=== PATIENT | female | born 1955 | race Caucasian/White ===

== ENCOUNTER 2017-08-28 16:17 | Emergency (ER) | payer OTHER ==
--- NOTE | 2017-08-28 16:20 | ER Report ---
History and Physical Time Seen By MD: 16:19 HPI/ROS CHIEF COMPLAINT: chills HISTORY OF PRESENT ILLNESS: Last night woke up with reflux at 1am. took gaviscon and raised her head in bed and felt better. States that she has had reflux before. PT woke up at her normal time and had a runny nose. 3 hours ago stasrtd with cough, chills and tactile fever. no palumbo. no change in bm. Pt states she feels shaky and her heart is fast. Has hx of svt but states this is different. Has pain in her chest but only with cough. Pt states she felt she had the flu 3 weeks ago but was never tested. pt did get flu shot this year. REVIEW OF SYSTEMS: Constitutional: + fever, + chills. Eyes: No discharge. ENT: No sore throat. Cardiovascular: + chest pain with cough, + palpitations. Respiratory: + cough, no shortness of breath. Gastrointestinal: No abdominal pain, no vomiting. Genitourinary: No hematuria. Musculoskeletal: No back pain. Skin: No rashes. Neurological: No headache. Allergies: Coded Allergies: peanut (Verified Allergy, Severe, ANAPHYLAXIS, 08/28/17) Quinolones (Verified Allergy, Intermediate, 08/28/17) Sulfa (Sulfonamide Antibiotics) (Verified Allergy, Intermediate, 08/28/17) Home Meds Active Scripts Oseltamivir Phosphate (TAMIFLU) 75 Mg Cap, 75 MG PO BID, #10 CAP Prov:JATINDER DIEGO V DO 08/28/17 Reported Medications Epinephrine (EPIPEN 2-AUBREE) 0.3 Mg/0.3 Ml Pen.injctr, 0.3 MG IM 08/28/17 Valacyclovir Hcl (VALTREX) 500 Mg Tablet, 500 MG PO 08/28/17 Escitalopram Oxalate (LEXAPRO) 20 Mg Tablet, 5 MG PO QDAY, TAB 08/28/17 Past Medical/Surgical History pmhx: svt, gerd, anxiety Pshx: non contribuitory Reviewed Nurses Notes: Yes Old Medical Records Reviewed: No (none) Smoking Status: Never Smoker Exposure to Second Hand Smoke?: Yes (as child) Hx Alcohol Use: Yes (occasional) Constitutional Vital Sign - Last 24 Hours 3/11/18 3/11/18 3/11/18 3/11/18 16:22 16:30 16:30 17:00 Temp 99.9 Pulse 155 135 131 121 Resp 17 18 16 18 B/P (MAP) 141/97 (112) 131/79 131/79 (96) 127/82 (97) Pulse Ox 95 95 97 96 O2 Delivery Room Air 08/28/17 08/28/17 08/28/17 17:30 17:47 18:00 Pulse 116 121 116 Resp 16 22 23 B/P (MAP) 122/72 (89) 126/76 (93) Pulse Ox 96 97 94 Physical Exam General Appearance: The patient is alert, has no immediate need for airway protection and no signs of toxicity. Eyes: Pupils equal and round no pallor or injection, EOMI ENT: no pharyngeal erythema or exudates, Mucous membranes are moist, TM are nl b/l Respiratory: There are no retractions, lungs are clear to auscultation. Cardiovascular: tachy. pulses are equal and symmetrical Gastrointestinal: Abdomen is soft and non tender, no masses, bowel sounds normal, no guarding, no rigidity or rebound Neurological: Cranial nerves II-XII grossly intact, no sensory or motor loss Skin: Warm and dry, no rashes. Musculoskeletal: Neck is supple non tender, no vertebral tenderness Extremities are nontender, non swollen and have full range of motion. DIFFERENTIAL DIAGNOSIS: After history and physical exam differential diagnosis was considered for pneumonia, influenza, bronchitis, acs Medical Decision Making Data Points Result Diagram: 08/28/17 1645 08/28/17 1645 Laboratory Hematology Test 08/28/17 16:45 Red Blood Count 4.95 M/uL (4.17-5.56) Mean Corpuscular Volume 86.7 fL (80.0-96.0) Mean Corpuscular Hemoglobin 29.8 pg (26.0-33.0) Mean Corpuscular Hemoglobin Concent 34.4 g/dL (32.0-36.0) Red Cell Distribution Width 13.6 % (11.5-14.5) Mean Platelet Volume 7.3 fL (7.2-11.1) Neutrophils (%) (Auto) 87.5 % (39.4-72.5) Lymphocytes (%) (Auto) 4.9 % (17.6-49.6) Monocytes (%) (Auto) 6.8 % (4.1-12.4) Eosinophils (%) (Auto) 0.5 % (0.4-6.7) Basophils (%) (Auto) 0.3 % (0.3-1.4) Nucleated RBC Relative Count (auto) 0.0 /100WBC Neutrophils # (Auto) 8.8 K/uL (2.0-7.4) Lymphocytes # (Auto) 0.5 K/uL (1.3-3.6) Monocytes # (Auto) 0.7 K/uL (0.3-1.0) Eosinophils # (Auto) 0.1 K/uL (0.0-0.5) Basophils # (Auto) 0.0 K/uL (0.0-0.1) Nucleated RBC Absolute Count (auto) 0.00 K/uL D-Dimer Quantitative (PE/DVT) 0.45 ug/ml (0-0.50) Urine Color Straw Urine Clarity Clear Urine pH 7.0 pH (4.8-9.5) Urine Specific Dora 1.011 Urine Protein Negative mg/dL (NEGATIVE) Urine Glucose (UA) Negative mg/dL (NEGATIVE) Urine Ketones Trace mg/dL (NEGATIVE) Urine Blood Negative (NEGATIVE) Urine Nitrite Negative (NEGATIVE) Urine Bilirubin Negative (NEGATIVE) Urine Urobilinogen Negative mg/dL (0.2-1.9) Urine Leukocyte Esterase Negative (NEGATIVE) Urine RBC 1 /HPF (0-2/HPF) Urine WBC <1 /HPF (0-5/HPF) Urine Squamous Epithelial Cells Few /LPF (</=FEW) Urine Bacteria Negative /HPF (NONE-FEW) Urine Mucus None /HPF (NONE-FEW) Sodium Level 137 mmol/L (137-145) Potassium Level 3.7 mmol/L (3.5-5.0) Chloride Level 101 mmol/L (98-107) Carbon Dioxide Level 23 mmol/L (22-31) Blood Urea Nitrogen 14 mg/dl (7-18) Creatinine 0.80 mg/dl (0.52-1.04) Glomerular Filtration Rate Calc > 60.0 Random Glucose 101 mg/dl (75-110) Calcium Level 9.2 mg/dl (8.4-10.2) Total Bilirubin 0.2 mg/dl (0.2-1.3) Aspartate Amino Transf (AST/SGOT) 30 U/L (0-35) Alanine Aminotransferase (ALT/SGPT) 46 U/L (0-56) Alkaline Phosphatase 70 U/L (0-126) Troponin I < 0.012 ng/ml Total Protein 7.6 gm/dl (6.3-8.2) Albumin 4.2 g/dl (3.5-5.0) Influenza Virus Type A (PCR) Positive (NEGATIVE) Influenza Virus Type B (PCR) Negative (NEGATIVE) Chemistry Test 08/28/17 16:45 White Blood Count 10.0 k/uL (4.5-11.0) Red Blood Count 4.95 M/uL (4.17-5.56) Hemoglobin 14.7 g/dL (12.0-16.0) Hematocrit 42.9 % (34.0-47.0) Mean Corpuscular Volume 86.7 fL (80.0-96.0) Mean Corpuscular Hemoglobin 29.8 pg (26.0-33.0) Mean Corpuscular Hemoglobin Concent 34.4 g/dL (32.0-36.0) Red Cell Distribution Width 13.6 % (11.5-14.5) Platelet Count 315 K/uL (150-450) Mean Platelet Volume 7.3 fL (7.2-11.1) Neutrophils (%) (Auto) 87.5 % (39.4-72.5) Lymphocytes (%) (Auto) 4.9 % (17.6-49.6) Monocytes (%) (Auto) 6.8 % (4.1-12.4) Eosinophils (%) (Auto) 0.5 % (0.4-6.7) Basophils (%) (Auto) 0.3 % (0.3-1.4) Nucleated RBC Relative Count (auto) 0.0 /100WBC Neutrophils # (Auto) 8.8 K/uL (2.0-7.4) Lymphocytes # (Auto) 0.5 K/uL (1.3-3.6) Monocytes # (Auto) 0.7 K/uL (0.3-1.0) Eosinophils # (Auto) 0.1 K/uL (0.0-0.5) Basophils # (Auto) 0.0 K/uL (0.0-0.1) Nucleated RBC Absolute Count (auto) 0.00 K/uL D-Dimer Quantitative (PE/DVT) 0.45 ug/ml (0-0.50) Urine Color Straw Urine Clarity Clear Urine pH 7.0 pH (4.8-9.5) Urine Specific Dora 1.011 Urine Protein Negative mg/dL (NEGATIVE) Urine Glucose (UA) Negative mg/dL (NEGATIVE) Urine Ketones Trace mg/dL (NEGATIVE) Urine Blood Negative (NEGATIVE) Urine Nitrite Negative (NEGATIVE) Urine Bilirubin Negative (NEGATIVE) Urine Urobilinogen Negative mg/dL (0.2-1.9) Urine Leukocyte Esterase Negative (NEGATIVE) Urine RBC 1 /HPF (0-2/HPF) Urine WBC <1 /HPF (0-5/HPF) Urine Squamous Epithelial Cells Few /LPF (</=FEW) Urine Bacteria Negative /HPF (NONE-FEW) Urine Mucus None /HPF (NONE-FEW) Glomerular Filtration Rate Calc > 60.0 Calcium Level 9.2 mg/dl (8.4-10.2) Total Bilirubin 0.2 mg/dl (0.2-1.3) Aspartate Amino Transf (AST/SGOT) 30 U/L (0-35) Alanine Aminotransferase (ALT/SGPT) 46 U/L (0-56) Alkaline Phosphatase 70 U/L (0-126) Troponin I < 0.012 ng/ml Total Protein 7.6 gm/dl (6.3-8.2) Albumin 4.2 g/dl (3.5-5.0) Influenza Virus Type A (PCR) Positive (NEGATIVE) Influenza Virus Type B (PCR) Negative (NEGATIVE) Coagulation Test 08/28/17 16:45 D-Dimer Quantitative (PE/DVT) 0.45 ug/ml Urinalysis Test 08/28/17 16:45 Urine Color Straw Urine Clarity Clear Urine pH 7.0 pH (4.8-9.5) Urine Specific Dora 1.011 Urine Protein Negative mg/dL (NEGATIVE) Urine Glucose (UA) Negative mg/dL (NEGATIVE) Urine Ketones Trace mg/dL (NEGATIVE) Urine Blood Negative (NEGATIVE) Urine Nitrite Negative (NEGATIVE) Urine Bilirubin Negative (NEGATIVE) Urine Urobilinogen Negative mg/dL (0.2-1.9) Urine Leukocyte Esterase Negative (NEGATIVE) Urine RBC 1 /HPF (0-2/HPF) Urine WBC <1 /HPF (0-5/HPF) Urine Squamous Epithelial Cells Few /LPF (</=FEW) Urine Bacteria Negative /HPF (NONE-FEW) Urine Mucus None /HPF (NONE-FEW) EKG/Imaging EKG Interpretation sinus tach @ [address] wave changes Imaging napd on cxr ED Course/Re-evaluation Clinical Indication for ER IV: Hydration, IV Access ED Course Will check labs, ekg and xray PT influneza A positive. Pt lives in [place]. Pt is not going to drive home today but is planning on staying in local hotel and leave first thing in am. will give her evening tamiflu and am tamiflu to go. pt to be sent home with script. will give pts prophylaxis due to he has heart and lung ds hx Decision to Disposition Date: Aug 28, 2017 Decision to Disposition Time: 18:12 Depart Departure Latest Vital Signs Vital Signs Date Time Temp Pulse Resp B/P (MAP) Pulse Ox O2 Delivery O2 Flow Rate FiO2 08/28/17 18:00 116 23 126/76 (93) 94 08/28/17 16:30 99.9 Room Air Impression: Primary Impression: Influenza A Condition: Improved Disposition: HOME OR SELF-CARE New Scripts Oseltamivir Phosphate (TAMIFLU) 75 Mg Cap 75 MG PO BID, #10 CAP Prov: JATINDER DIEGO DO 08/28/17 Departure Forms: ER Transition Record, Medications Reconciliation, Off Work/ School Form, School or Work Release?: Work Number of days to be released: 7 Patient Portal Information Patient Instructions: Influenza (DC) Additional Instructions: Your lab tests are positive for Influenza A Take Tamiflu twice a day until finished. Your script was electronically sent to [facility] in [place] Tylenol and motrin for chills and bodyaches. 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 Follow up as needed. JATINDER DIEGO DO Aug 28, 2017 16:20
[2017-08-28] MEDS ORDERED: ESCI20TA38 PO (16:29)
[2017-08-28] MEDS ORDERED: VALA500T66 PO (16:29)
[2017-08-28] MEDS ORDERED: EPIN0.3P15 IM (16:29)
[2017-08-28] MEDS ORDERED: NS(*) 0.9% 1000 ML BAG 1,000 ML IV ONE (16:35)
--- NOTE | 2017-08-28 16:36 | EKG ---
FACILITY: [facility] PATIENT NAME: ESPERANZA PORTILLO : [id number] MR: [id number] V: [id number] EXAM DATE: ORDERING PHYSICIAN: JATINDER DIEGO TECHNOLOGIST: Test Reason : TACHYCARDIA Blood Pressure : / mmHG Vent. Rate : 139 BPM Atrial Rate : 139 BPM P-R Int : 140 ms QRS Dur : 078 ms QT Int : 358 ms P-R-T Axes : 059 032 067 degrees QTc Int : 544 ms Sinus tachycardia Non-specific T flattening. No previous ECGs available Confirmed by KARTIK COTTRELL ([id number]) on 08/28/2017 7:23:14 PM Referred By: Confirmed By:KARTIK COTTRELL
[2017-08-28 17:13] LABS: PLATELET COUNT, AUTOMATED 315 K/uL (150-450)
--- NOTE | 2017-08-28 17:26 | RADIOLOGY IMAGING REPORT ---
FACILITY: [facility] PATIENT NAME: Socorro Cardona : 1955 MR: [id number] V: [id number] EXAM DATE: ORDERING PHYSICIAN: JATINDER DIEGO TECHNOLOGIST: Location: [facility] Patient: Socorro Cardona : 1955 Visit/Account:[id number] Date of Sevice: 08/28/2017 EXAMINATION: Chest 2 Views HISTORY: Cough and fever. COMPARISON: None. FINDINGS: The lungs are clear. No focal consolidation or pleural fluid. No pneumothorax. Normal cardiomedias tinal silhouette, with normal heart size and pulmonary vascularity. Visualized osseous structures ar e unremarkable. IMPRESSION: Negative chest. Report Dictated By: Daniel Canseco MD at 08/28/2017 5:21 PM Report E-Signed By: Daniel Canseco MD at 08/28/2017 5:22 PM WSN:[id number]
[2017-08-28] MEDS ORDERED: OSELTAMIVIR PHOS 75 MG CAP PO ONE ×2 (18:05)
[2017-08-28] MEDS ORDERED: ACETAMINOPHEN 325 MG TAB PO ONE (18:05)
[2017-08-28] MEDS ORDERED: OSE75 PO (18:13)
[2017-08-28 18:20] VITALS: BP 129/95
== END 2017-08-28 18:24 | disposition home or self-care (01) ==
LOC: ER 16:38
DX: J09.X2 Influenza due to identified novel influenza A virus with other respiratory manifestations (principal)
CPT/HCPCS: 71046; 81001; 84443; 84484; 85025; 85379; 87502; 93005; 96360; 99284; J7030; 82040; 82247; 82310; 82374; 82435; 82565; 82947; 84075; 84132; 84155; 84295; 84450; 84460; 84520